=== PATIENT | male | born 1950 | race Caucasian/White ===

== ENCOUNTER 2018-03-13 21:42 | Inpatient (IN) ==
[2018-03-13] MEDS ORDERED: ASPIRIN 325 MG TABLET PO STA (22:31)
[2018-03-13 23:16] LABS: Basophils % 0.1 % (0.0-0.8); Eosinophils # 0.1 10*3/uL (0.0-0.87); Eosinophils % 0.6 % (0.00-10.9); Hematocrit 22.4 VOL% (42.0-52.0); Hemoglobin 7.5 GM/DL (14.0-18.0); Immature Granulocytes % 2.7 %; Immature Granulocytes Absolute 0.64 #; Lymphocytes # 2.6 10*3/uL (1.4-4.0); Lymphocytes % 11.1 % (21.2-54.2); Mean Corpuscular HGB Conc 33.5 GM/DL (32-36); Mean Corpuscular Hemoglobin 34 PG (27-34); Mean Corpuscular Volume 100.4 FL (87-102); Mean Platelet Volume 11.3 FL (9.6-12.0); Monocytes # 1.4 10*3/uL (0.11-0.8); NRBC # 0.05 10*3/uL; Neutrophils # 18.7 10*3/uL (1.4-7.4); Neutrophils % 79.5 % (38.7-73.9); Platelet Count 229 T/CUMM (130-400); Red Blood Count 2.23 MC/CUMM (3.8-5.5); Red Cell Distribution Width 14.2 % (9.3-17.3); White Blood Count 23.5 T/CUMM (4-12)
[2018-03-13 23:30] LABS: Alanine Aminotransferase 31 U/L (16-61); Albumin 3.1 G/DL (3.4-5.0); Alkaline Phosphatase 33 U/L (45-117); Aspartate Amino Transferase 18 U/L (0-37); Bilirubin,Total < 0.39 MG/DL (0.2-1.0); Blood Urea Nitrogen 27 MG/DL (7-18); Calcium 8.1 MG/DL (8.5-10.1); Glucose 115 MG/DL (74-106); Osmolality,Calculated 284.4 MOS/KG (273-304); Potassium 3.8 MMOL/L (3.5-5.1); Sodium 140 MMOL/L (136-145); Total Protein 5.5 G/DL (6.4-8.3)
[2018-03-13 23:31] LABS: INR 0.9; PT Patient Result 9.9 SECS
[2018-03-13 23:55] LABS: Lymphocytes 10 % (20-55); Platelet Estimate Normal; Segmented Neutrophils 87 % (50-85); Total Cells Counted 100
[2018-03-14] MEDS ORDERED: ONDANSETRON 4 MG/2 ML VIAL IV ONE (01:19)
[2018-03-14] MEDS ORDERED: MORPHINE 4 MG/1 ML VIAL IV STA (01:19)
[2018-03-14] MEDS ORDERED: ONDANSETRON 4 MG/2 ML VIAL ONE (01:20)
[2018-03-14] MEDS ORDERED: MORPHINE 4 MG/1 ML VIAL ONE (01:21)
[2018-03-14] MEDS ORDERED: ENOXAPARIN 30 MG/0.3 ML SYRINGE SUBCUT STA (01:32)
[2018-03-14] MEDS ORDERED: ENOXAPARIN 80 MG/0.8 ML SYRINGE SUBCUT ONE (01:51)
[2018-03-14] MEDS ORDERED: ALUM/MAG/SIMETH/LIDO VISC 1:1 30 ML BOTTLE PO ONE (02:49)
[2018-03-14] MEDS ORDERED: ALUM/MAG/SIMETH/LIDO VISC 1:1 30 ML BOTTLE PO STA (02:58)
[2018-03-14] MEDS ORDERED: PANTOPRAZOLE INJ 80 MG in SODIUM CHLORIDE 0.9% 100 ML IV ONE (02:59)
[2018-03-14] MEDS ORDERED: SODIUM CHLORIDE 0.9% 1,000 ML IV PRN (04:19)
[2018-03-14] MEDS ORDERED: ONDANSETRON 4 MG/2 ML VIAL IV PRN (04:21)
[2018-03-14] MEDS ORDERED: MORPHINE 4 MG/1 ML VIAL IV PRN (04:21)
[2018-03-14 04:33] LABS: Apearance,Urine CLEAR (Clear); Bilirubin,Urine Negative (Negative); Blood, Urine Negative (Negative); Glucose,Urine (UA) Negative (Negative); Ketones,Urine Negative (Negative); Nitrite,Urine Negative (Negative); Protein,Urine Negative; RBC,Urine 1 /HPF (0-4); Urine Color Yellow (Yellow); Urine Specific Gravity 1.036 (1.001-1.035); Urine Urobilinogen < 2.0 EU/DL (0.2-1.0); WBC,Urine 1 /HPF (0-6)
[2018-03-14] MEDS ORDERED: LORazepam 2 MG/1 ML VIAL IV PRN (04:39)
[2018-03-14 04:51] LABS: Barbiturates Screen,Urine Negative (Negative); Benzodiazepines Screen,Urine Negative (Negative); Cannabinoid Screen,Urine Negative (Negative); Opiate Screen,Urine Positive (Negative); Phencyclidine Screen,Urine Negative (Negative)
[2018-03-14 05:49] LABS: Hematocrit 22.4 VOL% (42.0-52.0); Hemoglobin 7.4 GM/DL (14.0-18.0)
[2018-03-14] MEDS: PANTOPRAZOLE INJ 200 MG in SODIUM CHLORIDE 0.9% 250 ML IV SCH (08:20)
[2018-03-14] MEDS ORDERED: REGADENOSON 0.4 MG/5 ML SYRINGE IV ONE (11:13)
[2018-03-14 12:18] LABS: Basophils % 0.1 % (0.0-0.8); Eosinophils # 0.1 10*3/uL (0.0-0.87); Eosinophils % 0.5 % (0.00-10.9); Hemoglobin 8.5 GM/DL (14.0-18.0); Immature Granulocytes % 2.4 %; Immature Granulocytes Absolute 0.44 #; Lymphocytes # 1.9 10*3/uL (1.4-4.0); Lymphocytes % 10.6 % (21.2-54.2); Mean Corpuscular HGB Conc 32.7 GM/DL (32-36); Mean Corpuscular Hemoglobin 32 PG (27-34); Mean Corpuscular Volume 98.5 FL (87-102); Mean Platelet Volume 10.8 FL (9.6-12.0); Monocytes # 1.3 10*3/uL (0.11-0.8); Monocytes % 7.2 % (1.7-12.7); NRBC # 0.02 10*3/uL; Neutrophils # 14.5 10*3/uL (1.4-7.4); Neutrophils % 79.2 % (38.7-73.9); Platelet Count 198 T/CUMM (130-400); Red Blood Count 2.64 MC/CUMM (3.8-5.5); Red Cell Distribution Width 16.4 % (9.3-17.3); White Blood Count 18.3 T/CUMM (4-12)
[2018-03-14 12:48] LABS: Calcium 7.9 MG/DL (8.5-10.1); Osmolality,Calculated 281.4 MOS/KG (273-304); Potassium 4.3 MMOL/L (3.5-5.1)
[2018-03-14 16:58] LABS: Hematocrit 29.7 VOL% (42.0-52.0); Hemoglobin 9.8 GM/DL (14.0-18.0)
[2018-03-14 23:09] LABS: Hematocrit 27.6 VOL% (42.0-52.0); Hemoglobin 9.1 GM/DL (14.0-18.0)
[2018-03-15 05:19] LABS: Basophils % 0.2 % (0.0-0.8); Eosinophils # 0.2 10*3/uL (0.0-0.87); Eosinophils % 1.1 % (0.00-10.9); Hemoglobin 9.3 GM/DL (14.0-18.0); Immature Granulocytes % 2.2 %; Immature Granulocytes Absolute 0.35 #; Lymphocytes # 1.7 10*3/uL (1.4-4.0); Lymphocytes % 10.5 % (21.2-54.2); Mean Corpuscular HGB Conc 33.2 GM/DL (32-36); Mean Corpuscular Hemoglobin 33 PG (27-34); Mean Corpuscular Volume 98.9 FL (87-102); Mean Platelet Volume 11.5 FL (9.6-12.0); Monocytes # 1.3 10*3/uL (0.11-0.8); Monocytes % 7.8 % (1.7-12.7); Neutrophils # 12.7 10*3/uL (1.4-7.4); Neutrophils % 78.2 % (38.7-73.9); Platelet Count 204 T/CUMM (130-400); Red Blood Count 2.83 MC/CUMM (3.8-5.5); Red Cell Distribution Width 17.2 % (9.3-17.3); White Blood Count 16.3 T/CUMM (4-12)
[2018-03-15 05:58] LABS: Calcium 7.9 MG/DL (8.5-10.1); Osmolality,Calculated 282.4 MOS/KG (273-304); Potassium 4.1 MMOL/L (3.5-5.1); Risk Ratio 2.06; VLDL CHOLESTEROL 13.8 MG/DL
[2018-03-15] MEDS: PANTOPRAZOLE INJ 200 MG in SODIUM CHLORIDE 0.9% 250 ML IV SCH (06:33)
[2018-03-15] MEDS ORDERED: LIDOCAINE 100 MG/5 ML SYRINGE ONE (10:00)
[2018-03-15] MEDS ORDERED: PROPOFOL 200 MG/20 ML VIAL IV ONE (10:00)
[2018-03-15] MEDS ORDERED: ETOMIDATE 20 MG/10 ML VIAL IV ONE (10:00)
[2018-03-16 04:42] LABS: Basophils % 0.2 % (0.0-0.8); Eosinophils # 0.2 10*3/uL (0.0-0.87); Eosinophils % 1.2 % (0.00-10.9); Hematocrit 31.2 VOL% (42.0-52.0); Hemoglobin 10.2 GM/DL (14.0-18.0); Immature Granulocytes % 2.9 %; Lymphocytes # 1.9 10*3/uL (1.4-4.0); Mean Corpuscular HGB Conc 32.7 GM/DL (32-36); Mean Corpuscular Hemoglobin 33 PG (27-34); Mean Corpuscular Volume 99.4 FL (87-102); Mean Platelet Volume 10.8 FL (9.6-12.0); Monocytes # 1.2 10*3/uL (0.11-0.8); Monocytes % 6.9 % (1.7-12.7); Neutrophils # 13.5 10*3/uL (1.4-7.4); Neutrophils % 77.8 % (38.7-73.9); Platelet Count 229 T/CUMM (130-400); Red Blood Count 3.14 MC/CUMM (3.8-5.5); Red Cell Distribution Width 16.5 % (9.3-17.3); White Blood Count 17.4 T/CUMM (4-12)
[2018-03-16 05:13] LABS: Calcium 8.1 MG/DL (8.5-10.1); Osmolality,Calculated 279.4 MOS/KG (273-304); Potassium 4.7 MMOL/L (3.5-5.1)
[2018-03-16] MEDS: PANTOPRAZOLE INJ 200 MG in SODIUM CHLORIDE 0.9% 250 ML IV SCH (07:10)
[2018-03-16 10:07] LABS: Apearance,Urine CLEAR (Clear); Bilirubin,Urine Negative (Negative); Blood, Urine Small mg/dL (Negative); Glucose,Urine (UA) Negative (Negative); Ketones,Urine Negative (Negative); Nitrite,Urine Negative (Negative); Protein,Urine Negative; RBC,Urine <1 /HPF (0-4); Urine Color Straw (Yellow); Urine Specific Gravity 1.004 (1.001-1.035); Urine Urobilinogen < 2.0 EU/DL (0.2-1.0); WBC,Urine 1 /HPF (0-6)
[2018-03-16 11:53] VITALS: BP 125/71
[2018-03-17] MEDS ORDERED: PANTOPRAZOLE 40 MG VIAL IV SCH (21:00)
== END 2018-03-16 13:00 | disposition home or self-care (01) | DRG 378 ==
LOC: N.ED 21:42 → SUATTDRO 03-14 04:14 → N.EDINP 03-14 04:14 → N.2E 03-14 04:57
PROVIDERS: ADMIT Internal Medicine; ATTEND Internal Medicine

== ENCOUNTER 2018-04-06 10:47 | Inpatient (IN) ==
[~2018-04-06 10:47] MED LIST: ASPIRIN 325 MG TABLET PO ONE; DIAZEPAM 5 MG TABLET PO ONE; MAGNESIUM SULF RIDER 2 GM in PREMIX 1 EACH IV PRN; POTASSIUM CHLORIDE RIDER 10 MEQ in PREMIX 1 EACH IV PRN; diphenhydrAMINE CAP 25 MG CAPSULE PO ONE
[2018-04-06] MEDS ORDERED: DIAZEPAM 5 MG TABLET ONE (11:42)
[2018-04-06] MEDS ORDERED: ASPIRIN 325 MG TABLET ONE (11:42)
[2018-04-06] MEDS ORDERED: diphenhydrAMINE CAP 25 MG CAPSULE ONE (11:42)
[2018-04-06] MEDS: SODIUM CHLORIDE 0.9% 1,000 ML IV SCH ×2 (11:46→18:34)
[2018-04-06] MEDS ORDERED: HEPARIN/NACL 0.9% 2 UNITS/ML 1,000 ML IV ONE (12:07)
[2018-04-06] MEDS ORDERED: LIDOCAINE 1% 20 ML VIAL ONE (12:07)
[2018-04-06] MEDS ORDERED: MIDAZOLAM 2 MG/2 ML VIAL ONE (12:20)
[2018-04-06] MEDS ORDERED: HYDROmorphone 2 MG/1 ML VIAL ONE (12:20)
[2018-04-06] MEDS ORDERED: NITROGLYCERIN SL 0.4 MG TABLET SL PRN (13:54)
[2018-04-06] MEDS ORDERED: ZALEPLON 5 MG CAPSULE PO PRN (13:54)
[2018-04-06] MEDS ORDERED: ONDANSETRON 4 MG/2 ML VIAL IV PRN (13:54)
[2018-04-06] MEDS: TAMSULOSIN 0.4 MG CAPSULE PO SCH (18:54)
[2018-04-06] MEDS: PANTOPRAZOLE 40 MG TABLET PO SCH (21:37)
[2018-04-07] MEDS: SODIUM CHLORIDE 0.9% 1,000 ML IV SCH ×4 (03:47→17:54)
[2018-04-07 05:52] LABS: Calcium 8.2 MG/DL (8.5-10.1); Osmolality,Calculated 276.5 MOS/KG (273-304); Potassium 3.7 MMOL/L (3.5-5.1)
[2018-04-07] MEDS: BISOPROLOL 5 MG TABLET PO SCH (08:36)
[2018-04-07] MEDS: PANTOPRAZOLE 40 MG TABLET PO SCH ×2 (08:36→20:47)
[2018-04-07] MEDS: ROSUVASTATIN 10 MG TABLET PO SCH (08:36)
[2018-04-07] MEDS: ASPIRIN EC 81 MG TABLET PO SCH (08:36)
[2018-04-07] MEDS: MULTIVITAMIN (BEROCCA) TABLET PO SCH (08:36)
[2018-04-07] MEDS: CHOLECALCIFEROL 1,000 UNIT TABLET PO SCH (08:36)
[2018-04-07] MEDS: hydroCHLOROthiazide 25 MG TABLET PO SCH (08:36)
[2018-04-07] MEDS ORDERED: SODIUM CHLORIDE 0.9% 1,000 ML IV PRN (11:42)
[2018-04-07] MEDS: CHLORHEXIDINE 4% SOLN 118 ML BOTTLE TOP SCH ×2 (14:31→20:50)
[2018-04-07] MEDS: TAMSULOSIN 0.4 MG CAPSULE PO SCH (19:13)
[2018-04-07] MEDS ORDERED: DIAZEPAM 5 MG TABLET PO ONE (20:42)
[2018-04-07] MEDS: CHLORHEXIDINE 0.12% ORAL RINSE 60 ML BOTTLE SWISH/SPIT SCH (20:48)
[2018-04-07] MEDS ORDERED: CLORAZEPATE 3.75 MG TABLET PO ONE (21:55)
[2018-04-08 04:06] LABS: Basophils % 0.2 % (0.0-0.8); Eosinophils # 0.5 10*3/uL (0.0-0.87); Eosinophils % 6.2 % (0.00-10.9); Hematocrit 40.4 VOL% (42.0-52.0); Immature Granulocytes % 0.5 %; Immature Granulocytes Absolute 0.04 #; Lymphocytes # 0.9 10*3/uL (1.4-4.0); Mean Corpuscular HGB Conc 32.2 GM/DL (32-36); Mean Corpuscular Hemoglobin 31 PG (27-34); Mean Corpuscular Volume 96.9 FL (87-102); Mean Platelet Volume 10.1 FL (9.6-12.0); Monocytes # 0.9 10*3/uL (0.11-0.8); Monocytes % 10.6 % (1.7-12.7); Neutrophils # 5.9 10*3/uL (1.4-7.4); Neutrophils % 71.5 % (38.7-73.9); Platelet Count 176 T/CUMM (130-400); Red Blood Count 4.17 MC/CUMM (3.8-5.5); Red Cell Distribution Width 14.6 % (9.3-17.3); White Blood Count 8.3 T/CUMM (4-12)
[2018-04-08 04:35] LABS: Calcium 8.7 MG/DL (8.5-10.1); Osmolality,Calculated 277.5 MOS/KG (273-304)
[2018-04-08] MEDS: SODIUM CHLORIDE 0.9% 1,000 ML IV SCH ×4 (04:42→12:00)
[2018-04-08] MEDS ORDERED: CEFUROXIME INJ 1,500 MG in SYRINGE 1 EACH IV ONE (05:00)
[2018-04-08] MEDS ORDERED: PAPAVERINE 60 MG/2 ML VIAL ONE (05:08)
[2018-04-08] MEDS ORDERED: VANCOMYCIN 1,000 MG VIAL ONE (05:08)
[2018-04-08] MEDS ORDERED: TISSUE ADHESIVE 1 EACH APPLICATOR TOP ONE (05:08)
[2018-04-08] MEDS ORDERED: DIAZEPAM 5 MG TABLET ONE (08:42)
[2018-04-08] MEDS: ROSUVASTATIN 10 MG TABLET PO SCH (09:25)
[2018-04-08] MEDS: CHLORHEXIDINE 4% SOLN 118 ML BOTTLE TOP SCH (09:25)
[2018-04-08] MEDS: CHOLECALCIFEROL 1,000 UNIT TABLET PO SCH (09:26)
[2018-04-08] MEDS: MULTIVITAMIN (BEROCCA) TABLET PO SCH (09:26)
[2018-04-08] MEDS: hydroCHLOROthiazide 25 MG TABLET PO SCH (09:26)
[2018-04-08] MEDS: ASPIRIN EC 81 MG TABLET PO SCH (09:26)
[2018-04-08] MEDS: PANTOPRAZOLE 40 MG TABLET PO SCH (09:26)
[2018-04-08] MEDS: CHLORHEXIDINE 0.12% ORAL RINSE 60 ML BOTTLE SWISH/SPIT SCH ×2 (09:26→22:43)
[2018-04-08] MEDS: BISOPROLOL 5 MG TABLET PO SCH (09:41)
[2018-04-08 12:25] LABS: ABG Base Excess 0.4 MMOL/L (-2.5-2.5); ABG HCO3 24.8 MMOL/L (20-26); ABG PCO2 59.6 MM HG (35-48); ABG PH 7.289 (7.35-7.45); ABG TCO2 25.4 MMOL/L (23-27); Glucose Heart Surgery 115 MG/DL (74-106); Hematocrit Heart Surgery 39.2 PERCENT (42-52); Hemoglobin Heart Surgery 12.8 G/DL (14.0-18.0); Ionized Calcium Arterial 1.18 MMOL/L (1.21-1.46); PCO2 Patient Temp Arterial 59.6 MMHG; PH Patient Temp Arterial 7.289; Patient Temperature 37 CELCIUS; Potassium Heart/CVR 3.8 MMOL/L (3.5-5.1); Sodium Heart/CVR 136 MMOL/L (135-145)
[2018-04-08] MEDS ORDERED: PHENYLEPHRINE DRIP 40 MG/250 ML PREMIX IV ONE (12:33)
[2018-04-08] MEDS ORDERED: SODIUM BICARBONATE 50 MEQ/50 ML SYRINGE IV ONE ×2 (12:34→15:27)
[2018-04-08] MEDS ORDERED: EPINEPHrine 1 MG/10 ML SYRINGE ONE (12:34)
[2018-04-08] MEDS ORDERED: CALCIUM CHLORIDE 1,000 MG/10 ML SYRINGE IV ONE (12:34)
[2018-04-08] MEDS ORDERED: NITROGLYCERIN DRIP 0 MG/0 ML BOTTLE IV ONE (13:09)
[2018-04-08 13:29] LABS: Apearance,Urine CLEAR (Clear); Bilirubin,Urine Negative (Negative); Blood, Urine Negative (Negative); Glucose,Urine (UA) Negative (Negative); Ketones,Urine Negative (Negative); Nitrite,Urine Negative (Negative); Protein,Urine Negative; RBC,Urine 1 /HPF (0-4); Urine Color Yellow (Yellow); Urine Specific Gravity 1.008 (1.001-1.035); Urine Urobilinogen < 2.0 EU/DL (0.2-1.0); WBC,Urine 1 /HPF (0-6)
[2018-04-08 14:20] LABS: Hemoglobin Heart Surgery 8.3 G/DL (14.0-18.0); PCO2 Patient Temp Venous 31.9 MM HG; PH Patient Temp Venous 7.503; PO2 Patient Temp Venous 35.6 MM HG; Potassium Heart/CVR 4.4 MMOL/L (3.5-5.1); VBG Base Excess 2.3 MEQ/L (0-4); VBG HCO3 26.2 MEQ/L (24-28); VBG Oxygen Saturation 79.6 %; VBG PCO2 36.9 MMHG (41-51); VBG PH 7.458; VBG PO2 43.8 MMHG (17-40)
[2018-04-08] MEDS ORDERED: LIDOCAINE 100 MG/5 ML SYRINGE ONE (14:25)
[2018-04-08] MEDS ORDERED: ATROPINE 1 MG/10 ML SYRINGE ONE (14:25)
[2018-04-08 14:50] LABS: Hematocrit Heart Surgery 26.6 PERCENT (42-52); Hemoglobin Heart Surgery 8.6 G/DL (14.0-18.0); PCO2 Patient Temp Venous 33.4 MM HG; PH Patient Temp Venous 7.465; PO2 Patient Temp Venous 37.2 MM HG; Potassium Heart/CVR 4.1 MMOL/L (3.5-5.1); VBG Base Excess 0.8 MEQ/L (0-4); VBG HCO3 24.9 MEQ/L (24-28); VBG PCO2 38.6 MMHG (41-51); VBG PH 7.421; VBG PO2 45.8 MMHG (17-40)
[2018-04-08] MEDS ORDERED: THROMBIN TOPICAL (RECOMBINANT) 5,000 UNIT VIAL TOP ONE (15:25)
[2018-04-08] MEDS ORDERED: DEXTROSE 5% KCL 20 MEQ 20 MEQ/1,000 ML BAG IV ONE (15:26)
[2018-04-08] MEDS ORDERED: MANNITOL 100 GM/500 ML BAG IV ONE (15:26)
[2018-04-08] MEDS ORDERED: FUROSEMIDE 20 MG/2 ML VIAL ONE (15:27)
[2018-04-08] MEDS ORDERED: ALBUMIN 25% 25 GM/100 ML VIAL IV ONE (15:27)
[2018-04-08] MEDS ORDERED: MAGNESIUM SULFATE 10 GM/20 ML VIAL IV ONE (15:27)
[2018-04-08] MEDS ORDERED: PROTAMINE SULFATE 250 MG/25 ML VIAL IV ONE (15:27)
[2018-04-08] MEDS ORDERED: HEPARIN 10,000 UNIT/10 ML VIAL ONE (15:27)
[2018-04-08] MEDS ORDERED: methylPREDNISolone SOD SUC 1,000 MG/8 ML VIAL ONE (15:27)
[2018-04-08 15:37] LABS: ABG Base Excess -0.3 MMOL/L (-2.5-2.5); ABG HCO3 24.2 MMOL/L (20-26); ABG PCO2 38.1 MM HG (35-48); ABG TCO2 21.9 MMOL/L (23-27); Glucose Heart Surgery 275 MG/DL (74-106); Hematocrit Heart Surgery 31.6 PERCENT (42-52); Hemoglobin Heart Surgery 10.2 G/DL (14.0-18.0); Ionized Calcium Arterial 1.23 MMOL/L (1.21-1.46); PCO2 Patient Temp Arterial 38.1 MMHG; Patient Temperature 37 CELCIUS; Potassium Heart/CVR 3.7 MMOL/L (3.5-5.1); Sodium Heart/CVR 129 MMOL/L (135-145)
[2018-04-08] MEDS: SODIUM CHLORIDE 0.45% 1,000 ML IV SCH (16:30)
[2018-04-08] MEDS ORDERED: INSULIN REGULAR 100 UNIT/ML IV PRN (16:35)
[2018-04-08] MEDS ORDERED: CALCIUM CHLORIDE 1,000 MG/10 ML SYRINGE IV PRN (16:35)
[2018-04-08] MEDS ORDERED: ACETAMINOPHEN 650 MG SUPP RECTAL PRN (16:35)
[2018-04-08] MEDS ORDERED: POTASSIUM CHLORIDE RIDER 10 MEQ in PREMIX 1 EACH IV PRN (16:35)
[2018-04-08] MEDS ORDERED: SODIUM CHLORIDE 0.9% 250 ML IV PRN (16:35)
[2018-04-08] MEDS ORDERED: MAGNESIUM SULF RIDER 2 GM in PREMIX 1 EACH IV PRN (16:35)
[2018-04-08] MEDS ORDERED: MAGNESIUM SULF RIDER 4 GM in PREMIX 1 EACH IV PRN (16:35)
[2018-04-08] MEDS ORDERED: CHLORHEXIDINE 4% SOLN 118 ML BOTTLE TOP PRN (16:35)
[2018-04-08] MEDS ORDERED: ONDANSETRON 4 MG/2 ML VIAL IV PRN (16:35)
[2018-04-08] MEDS ORDERED: DEXTROSE 50% 25 GM/50 ML SYRINGE IV PRN ×2 (16:35)
[2018-04-08] MEDS ORDERED: MIDAZOLAM 10 MG/2 ML VIAL ONE ×2 (16:36)
[2018-04-08] MEDS ORDERED: SEVOFLURANE 1 UNIT/15 MINUTE INH ONE (16:36)
[2018-04-08] MEDS ORDERED: CALCIUM CHLORIDE 1,000 MG/10 ML VIAL IV ONE (16:36)
[2018-04-08] MEDS ORDERED: SODIUM CHLORIDE 0.9% 1,000 ML IV ONE (16:37)
[2018-04-08] MEDS ORDERED: VECURONIUM 10 MG VIAL IV ONE (16:37)
[2018-04-08] MEDS ORDERED: AMINOCAPROIC ACID 5,000 MG/20 ML VIAL IV ONE (16:37)
[2018-04-08] MEDS ORDERED: ETOMIDATE 40 MG/20 ML VIAL IV ONE (16:37)
[2018-04-08 16:47] LABS: ABG HCO3 23.6 MMOL/L (20-26); ABG PCO2 50.1 MM HG (35-48); ABG PH 7.318 (7.35-7.45); ABG TCO2 23.2 MMOL/L (23-27); Glucose Heart Surgery 225 MG/DL (74-106); Hematocrit Heart Surgery 34.3 PERCENT (42-52); Hemoglobin Heart Surgery 11.1 G/DL (14.0-18.0); Potassium Heart/CVR 3.4 MMOL/L (3.5-5.1)
[2018-04-08 16:50] LABS: Basophils % 0.1 % (0.0-0.8); Eosinophils # 0.1 10*3/uL (0.0-0.87); Eosinophils % 0.8 % (0.00-10.9); Hematocrit 34.1 VOL% (42.0-52.0); Immature Granulocytes % 0.8 %; Immature Granulocytes Absolute 0.12 #; Lymphocytes # 0.5 10*3/uL (1.4-4.0); Lymphocytes % 3.6 % (21.2-54.2); Mean Corpuscular HGB Conc 32.3 GM/DL (32-36); Mean Corpuscular Hemoglobin 32 PG (27-34); Mean Corpuscular Volume 99.1 FL (87-102); Mean Platelet Volume 10.4 FL (9.6-12.0); Monocytes # 0.6 10*3/uL (0.11-0.8); Neutrophils # 13.4 10*3/uL (1.4-7.4); Neutrophils % 90.7 % (38.7-73.9); Red Blood Count 3.44 MC/CUMM (3.8-5.5); Red Cell Distribution Width 14.4 % (9.3-17.3)
[2018-04-08] MEDS ORDERED: INSULIN REGULAR DRIP 100 ML IV SCH (17:00)
[2018-04-08] MEDS ORDERED: SODIUM CHLORIDE 0.45% 1,000 ML IV SCH (17:00)
[2018-04-08 17:05] LABS: Blood Urea Nitrogen 15 MG/DL (7-18); Calcium 8.2 MG/DL (8.5-10.1); Glucose 222 MG/DL (74-106); Osmolality,Calculated 280.8 MOS/KG (273-304); Platelet Count 152 T/CUMM (130-400); Potassium 3.5 MMOL/L (3.5-5.1); Sodium 137 MMOL/L (136-145); White Blood Count 14.8 T/CUMM (4-12)
[2018-04-08] MEDS: MIDAZOLAM 2 MG/2 ML VIAL IV PRN ×2 (17:05→18:55)
[2018-04-08 17:07] LABS: INR 0.9; PT Patient Result 10.3 SECS; Partial Thromboplastin Time 28.9 SECS (0-40)
[2018-04-08 17:12] LABS: Lactic Acid 2.9 MMOL/L (0.4-2.0)
[2018-04-08 17:32] LABS: Band Neutrophils 28 % (0-10); Eosinophils 1 % (0-10); Lymphocytes 6 % (20-55); Platelet Estimate Adequate; Segmented Neutrophils 63 % (50-85); Total Cells Counted 100
[2018-04-08] MEDS: chlordiazePOXIDE 10 MG CAPSULE PO SCH ×2 (17:54→21:54)
[2018-04-08] MEDS ORDERED: ASPIRIN 325 MG TABLET PO ONE (18:03)
[2018-04-08 18:07] LABS: ABG Base Excess 0.6 MMOL/L (-2.5-2.5); ABG HCO3 24.9 MMOL/L (20-26); ABG Oxygen Saturation 94.9 % (95-100); ABG PCO2 43.7 MM HG (35-48); ABG PH 7.382 (7.35-7.45); ABG PO2 78.2 MM HG (80-95); ABG TCO2 23.1 MMOL/L (23-27); Glucose Heart Surgery 223 MG/DL (74-106); Hematocrit Heart Surgery 37.1 PERCENT (42-52); Hemoglobin Heart Surgery 12.1 G/DL (14.0-18.0); Potassium Heart/CVR 3.3 MMOL/L (3.5-5.1)
[2018-04-08] MEDS: ALBUMIN 5% 12.5 GM in PREMIX 1 EACH IV PRN ×2 (18:10→18:25)
[2018-04-08] MEDS: POTASSIUM CHLORIDE RIDER 20 MEQ in PREMIX 1 EACH IV PRN ×2 (18:48→19:18)
[2018-04-08] MEDS: MORPHINE 10 MG/1 ML VIAL IV PRN ×2 (18:50→21:52)
[2018-04-08] MEDS: DEXMEDETOMIDINE 200 MCG in SODIUM CHLORIDE 0.9% 48 ML IV PRN ×2 (19:16→23:32)
[2018-04-08] MEDS ORDERED: PHENYLEPHRINE DRIP 40 MG/250 ML PREMIX IV PRN (19:35)
[2018-04-09] MEDS: CEFUROXIME INJ 1,500 MG in SYRINGE 1 EACH IV SCH ×2 (00:41→13:35)
[2018-04-09 03:43] LABS: ABG HCO3 24.4 MMOL/L (20-26); ABG Oxygen Saturation 98.3 % (95-100); ABG PCO2 41.1 MM HG (35-48); ABG PH 7.391 (7.35-7.45); ABG TCO2 22.6 MMOL/L (23-27); Glucose Heart Surgery 170 MG/DL (74-106); Hematocrit Heart Surgery 31.7 PERCENT (42-52); Hemoglobin Heart Surgery 10.3 G/DL (14.0-18.0); Potassium Heart/CVR 4.1 MMOL/L (3.5-5.1)
[2018-04-09 04:02] LABS: Calcium 7.9 MG/DL (8.5-10.1); Osmolality,Calculated 278.8 MOS/KG (273-304); Potassium 4.2 MMOL/L (3.5-5.1)
[2018-04-09 05:21] LABS: Basophils % 0.1 % (0.0-0.8); Eosinophils % 0.1 % (0.00-10.9); Hematocrit 31.7 VOL% (42.0-52.0); Immature Granulocytes % 0.6 %; Immature Granulocytes Absolute 0.09 #; Lymphocytes # 0.3 10*3/uL (1.4-4.0); Lymphocytes % 1.8 % (21.2-54.2); Mean Corpuscular HGB Conc 31.5 GM/DL (32-36); Mean Corpuscular Hemoglobin 31 PG (27-34); Mean Corpuscular Volume 99.1 FL (87-102); Mean Platelet Volume 11.2 FL (9.6-12.0); Monocytes # 0.5 10*3/uL (0.11-0.8); Neutrophils % 94.4 % (38.7-73.9); Platelet Count 168 T/CUMM (130-400); Red Cell Distribution Width 14.2 % (9.3-17.3); White Blood Count 15.9 T/CUMM (4-12)
[2018-04-09 05:31] LABS: Band Neutrophils 1 % (0-10); Hypochromasia 1+; Lymphocytes 3 % (20-55); Platelet Estimate Adequate; Segmented Neutrophils 95 % (50-85); Total Cells Counted 100
[2018-04-09] MEDS: SODIUM CHLORIDE 0.45% 1,000 ML IV SCH (05:50)
[2018-04-09] MEDS: MORPHINE 4 MG/1 ML VIAL IV PRN ×2 (06:56→21:42)
[2018-04-09] MEDS: chlordiazePOXIDE 10 MG CAPSULE PO SCH ×3 (09:10→21:33)
[2018-04-09] MEDS: PANTOPRAZOLE 40 MG VIAL IV SCH (09:10)
[2018-04-09] MEDS: CHLORHEXIDINE 0.12% ORAL RINSE 60 ML BOTTLE SWISH/SPIT SCH ×2 (09:12→21:33)
[2018-04-09] MEDS: CLOPIDOGREL 75 MG TABLET PO SCH (09:58)
[2018-04-09] MEDS: FUROSEMIDE 40 MG TABLET PO SCH ×2 (15:02→15:41)
[2018-04-09] MEDS: ASPIRIN EC 325 MG TABLET PO SCH ×2 (15:02→15:40)
[2018-04-09] MEDS: ATORVASTATIN 40 MG TABLET PO SCH ×2 (15:42→21:33)
[2018-04-09] MEDS: MORPHINE 10 MG/1 ML VIAL IV PRN (17:19)
[2018-04-10] MEDS: CEFUROXIME INJ 1,500 MG in SYRINGE 1 EACH IV SCH (00:50)
[2018-04-10 04:47] LABS: Calcium 8.4 MG/DL (8.5-10.1); Osmolality,Calculated 280.5 MOS/KG (273-304); Potassium 3.9 MMOL/L (3.5-5.1)
[2018-04-10] MEDS: MORPHINE 4 MG/1 ML VIAL IV PRN (07:36)
[2018-04-10] MEDS: PANTOPRAZOLE 40 MG VIAL IV SCH (09:12)
[2018-04-10] MEDS: ASPIRIN EC 325 MG TABLET PO SCH (09:12)
[2018-04-10] MEDS: CLOPIDOGREL 75 MG TABLET PO SCH (09:12)
[2018-04-10] MEDS: chlordiazePOXIDE 10 MG CAPSULE PO SCH ×3 (09:12→21:29)
[2018-04-10] MEDS: FUROSEMIDE 40 MG TABLET PO SCH (09:12)
[2018-04-10] MEDS: CHLORHEXIDINE 0.12% ORAL RINSE 60 ML BOTTLE SWISH/SPIT SCH ×2 (09:12→21:29)
[2018-04-10 13:39] LABS: Basophils % 0.1 % (0.0-0.8); Hemoglobin 9.7 GM/DL (14.0-18.0); Immature Granulocytes % 0.6 %; Immature Granulocytes Absolute 0.11 #; Lymphocytes # 0.5 10*3/uL (1.4-4.0); Lymphocytes % 2.7 % (21.2-54.2); Mean Corpuscular HGB Conc 31.3 GM/DL (32-36); Mean Corpuscular Hemoglobin 32 PG (27-34); Mean Corpuscular Volume 102.3 FL (87-102); Monocytes # 0.9 10*3/uL (0.11-0.8); Monocytes % 4.7 % (1.7-12.7); Neutrophils # 17.6 10*3/uL (1.4-7.4); Neutrophils % 91.9 % (38.7-73.9); Platelet Count 183 T/CUMM (130-400); Red Blood Count 3.03 MC/CUMM (3.8-5.5); Red Cell Distribution Width 14.8 % (9.3-17.3); White Blood Count 19.1 T/CUMM (4-12)
[2018-04-10] MEDS: METOPROLOL TARTRATE 25 MG TABLET PO SCH ×2 (13:42→21:29)
[2018-04-10 13:57] LABS: Lymphocytes 4 % (20-55); Segmented Neutrophils 91 % (50-85); Total Cells Counted 100
[2018-04-10 13:58] LABS: Platelet Estimate Adequate
[2018-04-10] MEDS: ATORVASTATIN 40 MG TABLET PO SCH (21:29)
[2018-04-11 04:14] LABS: Basophils % 0.1 % (0.0-0.8); Eosinophils # 0.1 10*3/uL (0.0-0.87); Eosinophils % 0.4 % (0.00-10.9); Hematocrit 29.1 VOL% (42.0-52.0); Hemoglobin 9.3 GM/DL (14.0-18.0); Immature Granulocytes % 0.6 %; Immature Granulocytes Absolute 0.07 #; Lymphocytes # 1.4 10*3/uL (1.4-4.0); Mean Corpuscular Hemoglobin 31 PG (27-34); Mean Platelet Volume 10.4 FL (9.6-12.0); Monocytes # 1.1 10*3/uL (0.11-0.8); Monocytes % 9.2 % (1.7-12.7); Neutrophils # 9.3 10*3/uL (1.4-7.4); Neutrophils % 77.7 % (38.7-73.9); Platelet Count 179 T/CUMM (130-400); Red Blood Count 2.97 MC/CUMM (3.8-5.5); Red Cell Distribution Width 14.4 % (9.3-17.3)
[2018-04-11 04:28] LABS: Calcium 8.2 MG/DL (8.5-10.1); Osmolality,Calculated 282.3 MOS/KG (273-304); Potassium 3.4 MMOL/L (3.5-5.1)
[2018-04-11] MEDS: POTASSIUM CHLORIDE RIDER 20 MEQ in PREMIX 1 EACH IV PRN ×2 (05:40→07:15)
[2018-04-11] MEDS: chlordiazePOXIDE 10 MG CAPSULE PO SCH ×3 (09:07→22:05)
[2018-04-11] MEDS: CLOPIDOGREL 75 MG TABLET PO SCH (09:07)
[2018-04-11] MEDS: METOPROLOL TARTRATE 25 MG TABLET PO SCH ×2 (09:07→22:05)
[2018-04-11] MEDS: ASPIRIN EC 325 MG TABLET PO SCH (09:07)
[2018-04-11] MEDS: FUROSEMIDE 40 MG TABLET PO SCH (09:07)
[2018-04-11] MEDS: CHLORHEXIDINE 0.12% ORAL RINSE 60 ML BOTTLE SWISH/SPIT SCH ×2 (09:09→22:06)
[2018-04-11] MEDS: PANTOPRAZOLE 40 MG VIAL IV SCH (09:09)
[2018-04-11] MEDS: POTASSIUM CHLORIDE RIDER 10 MEQ in PREMIX 1 EACH IV PRN ×3 (12:23→15:15)
[2018-04-11] MEDS: ATORVASTATIN 40 MG TABLET PO SCH (22:05)
[2018-04-12 05:08] LABS: Basophils % 0.3 % (0.0-0.8); Eosinophils # 0.2 10*3/uL (0.0-0.87); Eosinophils % 1.7 % (0.00-10.9); Hematocrit 34.4 VOL% (42.0-52.0); Hemoglobin 10.9 GM/DL (14.0-18.0); Immature Granulocytes Absolute 0.12 #; Lymphocytes # 1.7 10*3/uL (1.4-4.0); Lymphocytes % 14.5 % (21.2-54.2); Mean Corpuscular HGB Conc 31.7 GM/DL (32-36); Mean Corpuscular Hemoglobin 30 PG (27-34); Mean Corpuscular Volume 96.1 FL (87-102); Mean Platelet Volume 10.7 FL (9.6-12.0); Monocytes % 8.3 % (1.7-12.7); Neutrophils # 8.6 10*3/uL (1.4-7.4); Neutrophils % 74.2 % (38.7-73.9); Platelet Count 221 T/CUMM (130-400); Red Blood Count 3.58 MC/CUMM (3.8-5.5); Red Cell Distribution Width 14.2 % (9.3-17.3); White Blood Count 11.7 T/CUMM (4-12)
[2018-04-12 05:34] LABS: Calcium 8.7 MG/DL (8.5-10.1); Osmolality,Calculated 275.7 MOS/KG (273-304); Potassium 3.7 MMOL/L (3.5-5.1)
[2018-04-12] MEDS: CLOPIDOGREL 75 MG TABLET PO SCH (08:22)
[2018-04-12] MEDS: ASPIRIN EC 325 MG TABLET PO SCH (08:22)
[2018-04-12] MEDS: METOPROLOL TARTRATE 25 MG TABLET PO SCH (08:22)
[2018-04-12] MEDS: CHLORHEXIDINE 0.12% ORAL RINSE 60 ML BOTTLE SWISH/SPIT SCH (08:23)
[2018-04-12] MEDS: PANTOPRAZOLE 40 MG VIAL IV SCH (08:23)
[2018-04-12] MEDS: FUROSEMIDE 40 MG TABLET PO SCH (08:23)
[2018-04-12] MEDS: chlordiazePOXIDE 10 MG CAPSULE PO SCH (08:23)
[2018-04-12 08:46] VITALS: BP 116/70
== END 2018-04-12 11:30 | disposition home health service (06) | DRG 234 ==
LOC: N.CL 10:47 → N.TELEN 14:52 → N.CVR 04-08 12:08 → N.TELES 04-09 15:31
PROVIDERS: ADMIT Internal Medicine Cardiovascular Disease; ATTEND Internal Medicine Cardiovascular Disease
PROC: CLCCHCL (ICD-10-PCS; 2018-04-06 12:45)

== ENCOUNTER 2022-05-16 22:42 | Observation (INO) ==
[2022-05-16 22:37] LABS: Basophils # 0.1 10*3/uL (0.0-0.2); Basophils % 0.5 % (0.0-0.8); Eosinophils # 0.1 10*3/uL (0.0-0.87); Eosinophils % 1.3 % (0.00-10.9); Hematocrit 38.2 VOL% (42.0-52.0); Immature Granulocytes % 0.4 %; Immature Granulocytes Absolute 0.04 #; Lymphocytes # 1.8 10*3/uL (1.4-4.0); Lymphocytes % 19.2 % (21.2-54.2); Mean Corpuscular Volume 93.2 FL (87-102); Mean Platelet Volume 10.4 FL (9.6-12.0); Monocytes # 0.7 10*3/uL (0.11-0.8); Monocytes % 7.1 % (1.7-12.7); Neutrophils % 71.5 % (38.7-73.9); Platelet Count 214 T/CUMM (130-400); Red Cell Distribution Width 13.2 % (9.3-17.3); White Blood Count 9.4 T/CUMM (4-12)
[2022-05-16 22:49] LABS: PT Patient Result 10.7 SECS (10.1-12.1)
[2022-05-16 22:55] LABS: Albumin 3.5 G/DL (3.4-5.0); Bilirubin,Total 0.5 MG/DL (0.20-1.00); Calcium 8.9 MG/DL (8.5-10.1); Osmolality,Calculated 281.3 MOS/KG (273-304); Potassium 3.6 MMOL/L (3.5-5.1); Total Protein 6.5 G/DL (6.4-8.2)
[2022-05-16] MEDS ORDERED: SODIUM CHLORIDE 0.9% 1,000 ML IV STA (23:29)
[2022-05-16] MEDS ORDERED: ONDANSETRON 4 MG/2 ML VIAL IV ONE (23:29)
[2022-05-16] MEDS ORDERED: MORPHINE 2 MG/1 ML SYRINGE IV STA (23:29)
[2022-05-17] MEDS ORDERED: ZALEPLON 5 MG CAPSULE PO PRN (00:12)
[2022-05-17] MEDS ORDERED: hydrALAZINE 20 MG/1 ML VIAL IV PRN (00:12)
[2022-05-17] MEDS ORDERED: diphenhydrAMINE CAP 25 MG CAPSULE PO PRN (00:12)
[2022-05-17] MEDS ORDERED: MORPHINE 2 MG/1 ML SYRINGE IV PRN (00:12)
[2022-05-17] MEDS ORDERED: guaiFENesin/DM ER 600-30 MG TABLET PO PRN (00:12)
[2022-05-17] MEDS ORDERED: ACETAMINOPHEN 325 MG TABLET PO PRN (00:12)
[2022-05-17] MEDS ORDERED: NICOTINE 21 MG/24 HR PATCH TRANSDERM PRN (00:12)
[2022-05-17] MEDS ORDERED: ONDANSETRON 4 MG/2 ML VIAL IV PRN (00:12)
[2022-05-17] MEDS ORDERED: NITROGLYCERIN SL 0.4 MG TABLET SL STA (00:47)
[2022-05-17] MEDS ORDERED: ASPIRIN EC 325 MG TABLET PO STA (01:00)
[2022-05-17 05:50] LABS: Basophils % 0.6 % (0.0-0.8); Eosinophils # 0.2 10*3/uL (0.0-0.87); Eosinophils % 2.7 % (0.00-10.9); Hematocrit 37.6 VOL% (42.0-52.0); Hemoglobin 12.3 GM/DL (14.0-18.0); Immature Granulocytes % 0.4 %; Immature Granulocytes Absolute 0.03 #; Lymphocytes # 1.8 10*3/uL (1.4-4.0); Lymphocytes % 27.2 % (21.2-54.2); Mean Corpuscular HGB Conc 32.7 GM/DL (32-36); Mean Corpuscular Volume 95.4 FL (87-102); Mean Platelet Volume 11.1 FL (9.6-12.0); Monocytes # 0.6 10*3/uL (0.11-0.8); Monocytes % 9.3 % (1.7-12.7); Neutrophils % 59.8 % (38.7-73.9); Platelet Count 175 T/CUMM (130-400); Red Blood Count 3.94 MC/CUMM (3.8-5.5); Red Cell Distribution Width 13.3 % (9.3-17.3); White Blood Count 6.7 T/CUMM (4-12)
[2022-05-17 06:17] LABS: Calcium 8.8 MG/DL (8.5-10.1); Potassium 4.6 MMOL/L (3.5-5.1)
[2022-05-17 08:14] LABS: Risk Ratio 4.11; VLDL Cholesterol 25.4 MG/DL
[2022-05-17] MEDS ORDERED: MEMANTINE 10 MG TABLET PO SCH (09:00)
[2022-05-17] MEDS ORDERED: HEPARIN 5,000 UNIT/1 ML VIAL SUBCUT SCH (09:00)
[2022-05-17] MEDS ORDERED: MULTIVITAMIN (BEROCCA) TABLET PO SCH (09:00)
[2022-05-17] MEDS ORDERED: DONEPEZIL 10 MG TABLET PO SCH (09:00)
[2022-05-17] MEDS ORDERED: TAMSULOSIN 0.4 MG CAPSULE PO SCH (09:00)
[2022-05-17] MEDS ORDERED: PANTOPRAZOLE 40 MG TABLET PO SCH (09:00)
[2022-05-17] MEDS ORDERED: BISOPROLOL 5 MG TABLET PO SCH (09:00)
[2022-05-17] MEDS ORDERED: CHOLECALCIFEROL 1,000 UNIT TABLET PO SCH (09:00)
[2022-05-17] MEDS ORDERED: hydroCHLOROthiazide 25 MG TABLET PO SCH (09:00)
[2022-05-17] MEDS ORDERED: KETOROLAC 10 MG TABLET PO PRN (11:03)
[2022-05-17] MEDS ORDERED: KETOROLAC 30 MG/1 ML VIAL IV ONE (11:03)
[2022-05-17] MEDS ORDERED: ROSUVASTATIN 20 MG TABLET PO SCH (11:30)
[2022-05-17] MEDS ORDERED: ASPIRIN EC 81 MG TABLET PO SCH (11:30)
[2022-05-17] MEDS ORDERED: methylPREDNISolone 4 MG TABLET PO SCH (11:30)
[2022-05-17 15:59] VITALS: BP 119/55
== END 2022-05-17 16:15 | disposition home or self-care (01) ==
LOC: N.EDINP 22:42 → N.ED 22:42 → N.2W 05-17 01:06
PROVIDERS: ADMIT Internal Medicine; ATTEND Internal Medicine